=== PATIENT | male | born 2000 | race African-American/Black ===

== ENCOUNTER 2019-02-04 05:44 | Emergency (ER) | payer OTHER ==
--- NOTE | 2019-02-04 06:05 | EDM.PDOC ---
ED HPI GENERAL MEDICAL PROBLEM - General Chief Complaint: Gastrointestinal Problem Stated Complaint: SPITTING UP BLOOD, BLOOD IN STOOL Time Seen by Provider: 02/04/19 05:56 - History of Present Illness INITIAL COMMENTS - FREE TEXT/NARRATIVE: HISTORY AND PHYSICAL: History of present illness: Patient is a 18-year-old black male with history of hemorrhoids presents with concern of rectal bleeding he's had no abdominal pain nausea vomiting fever chills or other complaints. He states he had some blood this morning is mild and was not sure if this might have come from his nose or sinuses. This was brief and resolved he is no history of bleeding diathesis or other concern she is quite anxious on arrival patient has been evaluated in the past for this and did have colonoscopy that was negative other than hemorrhoids Review of systems: As per history of present illness and below otherwise all systems reviewed and negative. Past medical history: As per history of present illness and as reviewed below otherwise noncontributory. Surgical history: As per history of present illness and as reviewed below otherwise noncontributory. Social history: No reported history of drug or alcohol abuse. Family history: As per history of present illness and as reviewed below otherwise noncontributory. Physical exam: HEENT: Atraumatic, normocephalic, pupils reactive, negative for conjunctival pallor or scleral icterus, mucous membranes moist, throat clear, neck supple, nontender, trachea midline. Lungs: Clear to auscultation, breath sounds equal bilaterally, chest nontender. Heart: S1S2, regular, negative for clicks, rubs, or JVD. Abdomen: Soft, nondistended, nontender. Negative for masses or hepatosplenomegaly. Negative for costovertebral tenderness. Pelvis: Stable nontender. Genitourinary: Deferred. Rectal: Deferred. Extremities: Atraumatic, negative for cords or calf pain. Neurovascular unremarkable. Neuro: Awake, alert, oriented. Cranial nerves II through XII unremarkable. Cerebellum unremarkable. Motor and sensory unremarkable throughout. Exam nonfocal. Diagnostics: CBC CMP PT/INR Therapeutics: None Impression: #1 history of rectal bleeding #2 history of hemorrhoids Definitive disposition and diagnosis as appropriate pending reevaluation and review of above. brittany-umbilical area Pain Score (Numeric/FACES): 1 - Related Data Allergies Allergy/AdvReac Type Severity Reaction Status Date / Time No Known Allergies Allergy Verified 02/04/19 05:55 Home Meds: Home Meds . [No Known Home Meds] 02/04/19 [History] Social & Family History - Tobacco Use Smoking Status *Q: Never Smoker - Recreational Drug Use Recreational Drug Use: No ED ROS GENERAL - Review of Systems Review Of Systems: ROS reveals no pertinent complaints other than HPI. ED EXAM, GENERAL - Physical Exam Exam: See Below (See dictation) Course - Vital Signs Last Recorded V/S: Last Vital Signs Temp 36.4 C 02/04/19 05:54 Pulse 57 L 02/04/19 05:54 Resp 18 02/04/19 05:54 BP 123/63 02/04/19 05:54 Pulse Ox 98 02/04/19 05:54 - Orders/Labs/Meds Orders: Active Orders 24 hr Category Date Time Status Hemoccult [Fecal Occult Blood Collection] [RC] Care 02/04/19 05:56 Active ASDIRECTED CBC WITH AUTO DIFF [HEME] Stat Lab 02/04/19 05:56 Ordered COMPREHENSIVE METABOLIC PN,CMP [CHEM] Stat Lab 02/04/19 05:56 Ordered Departure - Departure Time of Disposition: 06:04 Disposition: Home, Self-Care 01 Condition: Good Clinical Impression: Rectal bleeding, Hemorrhoids - Discharge Information Additional Instructions: The following information is given to patients seen in the emergency department who are being discharged to home. This information is to outline your options for follow-up care. We provide all patients seen in our emergency department with a follow-up referral. The need for follow-up, as well as the timing and circumstances, are variable depending upon the specifics of your emergency department visit. If you don't have a primary care physician on staff, we will provide you with a referral. We always advise you to contact your personal physician following an emergency department visit to inform them of the circumstance of the visit and for follow-up with them and/or the need for any referrals to a consulting specialist. The emergency department will also refer you to a specialist when appropriate. This referral assures that you have the opportunity for followup care with a specialist. All of these measure are taken in an effort to provide you with optimal care, which includes your followup. Under all circumstances we always encourage you to contact your private physician who remains a resource for coordinating your care. When calling for followup care, please make the office aware that this follow-up is from your recent emergency room visit. If for any reason you are refused follow-up, please contact the [facility] emergency department at and asked to speak to the emergency department charge nurse. ESTUARDO [facility] - General Surgery Professional Building [address] [place] [address], [address] [place] [address] [facility] as directed sitmichels bathlaisha Colace as prescribed follow-up Gen. surgery above call to schedule routine appointment - My Orders Last 24 Hours: My Active Orders 02/04/19 05:56 Hemoccult [Fecal Occult Blood Collection] [RC] ASDIRECTED CBC WITH AUTO DIFF [HEME] Stat COMPREHENSIVE METABOLIC PN,CMP [CHEM] Stat - Assessment/Plan Last 24 Hours: My Active Orders 02/04/19 05:56 Hemoccult [Fecal Occult Blood Collection] [RC] ASDIRECTED CBC WITH AUTO DIFF [HEME] Stat COMPREHENSIVE METABOLIC PN,CMP [CHEM] Stat
[2019-02-04 06:35] LABS: BLOOD UREA NITROGEN,BUN 25 mg/dL (7.0-18.0); CHLORIDE,CL 106 mmol/L (98-107); GLUCOSE RANDOM 98 mg/dL (74-106); POTASSIUM,K 3.9 mmol/L (3.5-5.1); SODIUM,NA 138 mmol/L (136-148)
== END 2019-02-04 06:55 | disposition home or self-care (01) ==
LOC: MW.ED 05:44
DX: K64.9 Unspecified hemorrhoids (principal)
CPT/HCPCS: 36415; 80053; 85025; 85610; 99283